=== PATIENT | male | born 1975 | race Hispanic/Latino ===

== ENCOUNTER → 2023-05-22 | Outpatient (CLI) | payer OTHER ==
[2023-05-22 21:56] VITALS: PULSE 64; RESP 16
[2023-05-22 22:30] VITALS: PULSE 62; RESP 14
[2023-05-22 23:00] VITALS: PULSE 62; RESP 18
[2023-05-22 23:30] VITALS: PULSE 58; RESP 14
[2023-05-23] VITALS (11 sets, daily range): PULSE 58–62; RESP 8–16
== END | disposition home or self-care (01) ==
LOC: SLP 20:25
PROVIDERS: ATTEND Physician Assistant Medical
DX: G47.33 Obstructive sleep apnea (adult) (pediatric) (principal)
CPT/HCPCS: 95810

== ENCOUNTER → 2023-09-20 | Outpatient (CLI) | payer OTHER ==
[2023-09-20 22:54] VITALS: PULSE 68; RESP 12
[2023-09-20 23:30] VITALS: PULSE 64; RESP 6
[2023-09-21] VITALS (11 sets, daily range): PULSE 52–64; RESP 12–20
== END | disposition home or self-care (01) ==
LOC: SLP 20:36
PROVIDERS: ATTEND Family Medicine
DX: G47.33 Obstructive sleep apnea (adult) (pediatric) (principal)
CPT/HCPCS: 95811